=== PATIENT | female | born 1970 | race Caucasian/White ===

== ENCOUNTER 2018-05-19 15:28 | Outpatient (REF) | payer SELFPAY ==
--- NOTE | 2018-05-19 14:50 | PAPFT_PTH ---
PATIENT: Lis Davis LOC: [facility] U#:[id number] AGE/SX: 47/F ROOM: RE05/19/[address]: Teresa Dallas NP : 1970 BED: DIS: 05/19/2018 SPEC #: [id number] RECD: 05/19/18 18:14 STATUS: JAYLEN REAdy #: [id number] NHAN: 05/19/18 14:[address]: Teresa Dallas NP DEPT: [facility] Cytology RECD BY: Dee Dee Benson ENTERED: 05/19/18 18:15 SP TYPE: PAPFT CR DR: Ronda Og Tissues: 1 - CX/ENDOCX FOR PAP SMEARS Procedures: PAP THIN PREP/UVM Screening HPV DNA PROBE Comments: [id number]
== END 2018-05-19 15:48 ==
LOC: LBN 15:28
PROVIDERS: PCP Nurse Practitioner Family; Visit Provider Nurse Practitioner Women's Health
DX: Z12.4 Encounter for screening for malignant neoplasm of cervix (principal); Z11.51 Encounter for screening for human papillomavirus (HPV)
CPT/HCPCS: 88142; 87624

== ENCOUNTER 2020-08-08 03:12 | Outpatient (CLI) | payer MEDICAID, SELFPAY ==
--- NOTE | 2020-08-08 09:54 | DI.MAMMO_ITS ---
Exam(s) MAMMO SCREENING EXAM: MAMMO SCREENING CLINICAL HISTORY: SCREENING, Z12.31. TECHNIQUE: Bilateral full field digital CC and MLO mammographic images were obtained with 3D tomosyn thesis and utilizing computer aided detection (CAD). COMPARISON: None. This is a baseline mammogram on a 50-year-old patient. FINDINGS: In the right breast there is a well-defined 1.8 by 1.3 cm noncalcified nodule located posteriorly, ap proximately 10 cm in from the nipple, at approximately the 12 o'clock position. No other significant focal findings. No malignant-appearing microcalcification groups in either julia [address] There is no significant architectural distortion nor skin thickening-retraction. IMPRESSION: In the right breast there is an 18 x 13 millimeter noncalcified nodule located posteriorly at approxi mately 12 o'clock position. Spot compression view and ultrasound recommended to determine if this is solid or cystic. BI-RADS Category 0 - Assessment Incomplete: Need additional imaging evaluation Breast Density - Category B - Scattered areas of fibroglandular density Breast density Category C or D implies that the patient has dense breast tissue. Dense breast tissue can make it harder to find cancer on a mammogram. Dense breast tissue is also associated with an incr eased risk of breast cancer. This information about the result of the mammogram report was provided to the patient to raise their awareness. Use this report when you speak with the patient about their risks for breast cancer, which includes their family history. At that time, you may recommend additional screening tests (Ultrasoun d or MRI) as these tests may add significant information. A negative radiographic report should not delay biopsy if a dominant or clinically suspicious mass is present. Up to ten percent of cancers are not identified on mammography. A negative report may reinforce clinical impression. Adenosis and dense breasts may obscure an underlying neoplasm. False positive reports average 6 to 10%. Patient will receive a letter notifying them of these results.
== END 2020-08-08 03:32 ==
PROVIDERS: PCP Nurse Practitioner Family; Visit Provider Nurse Practitioner Family
DX: Z12.31 Encounter for screening mammogram for malignant neoplasm of breast (principal); R92.8 Other abnormal and inconclusive findings on diagnostic imaging of breast; N63.15 Unspecified lump in the right breast, overlapping quadrants
CPT/HCPCS: 77063; 77067

== ENCOUNTER 2020-08-28 02:14 | Outpatient (CLI) | payer MEDICAID, SELFPAY ==
--- NOTE | 2020-08-28 | DI.US_ITS ---
Exam(s) MG MAMMO SCREEN CALL BACK UNI US BREAST RT COMPLETE EXAM: MG MAMMO SCREEN CALL BACK UNI - RIGHT AND COMPLETE RIGHT BREAST ULTRSOUND CLINICAL HISTORY: F/U MAMMO, RT BREAST NODULE. TECHNIQUE: Unilateral spot mammographic images were obtained with 3D tomosynthesis and utilizing [employer] aided detection (CAD). . Breast Ultrasound was also performed. COMPARISON: Prior mammograms were reviewed. This additional imaging was performed due to findings described on the recent baseline screening mammogram of 08/08/2020. FINDINGS: Additional mammographic views performed todayreveal that this deep 12 o'clock position nodule persist s. Therefore we proceeded with ultrasound. Ultrasound performed today reveals a deep 15 x 6 millimeter wider than taller finding at the 12 o'reese ck position which has appearance of a probable cyst. Exhibits increased through transmission. At the 9 o'clock position there is a 2nd finding which is a small 4 x 2 millimeter benign microcyst. IMPRESSION: Benign findings. The nodule seen on the recent screening baseline mammogram at 12 o'clock position a ppears to be a deep 15 x 6 millimeters cyst. Ultrasound also revealed a smaller benign microcyst at the 9 o'clock position as described above. Appropriate follow-up is repeat right breast imaging in 6 months to include repeat right breast mammo gram and ultrasound. These findings and recommendations were discussed by myself with the patient to day.. BI-RADS Category 3 - 6 month - Probably Benign Finding: Recommend follow-up mammography in 6 months Breast Density - Category B - Scattered areas of fibroglandular density Breast density Category C or D implies that the patient has dense breast tissue. Dense breast tissue can make it harder to find cancer on a mammogram. Dense breast tissue is also associated with an incr eased risk of breast cancer. This information about the result of the mammogram report was provided to the patient to raise their awareness. Use this report when you speak with the patient about their risks for breast cancer, which includes their family history. At that time, you may recommend additional screening tests (Ultrasoun d or MRI) as these tests may add significant information. A negative radiographic report should not delay biopsy if a dominant or clinically suspicious mass is present. Up to ten percent of cancers are not identified on mammography. A negative report may reinforce clinical impression. Adenosis and dense breasts may obscure an underlying neoplasm. False positive reports average 6 to 10%. Patient will receive a letter notifying them of these results.
== END 2020-08-28 02:34 ==
PROVIDERS: PCP Nurse Practitioner Family; Visit Provider Nurse Practitioner Family
DX: Z12.31 Encounter for screening mammogram for malignant neoplasm of breast (principal); N60.01 Solitary cyst of right breast; N63.15 Unspecified lump in the right breast, overlapping quadrants; R92.8 Other abnormal and inconclusive findings on diagnostic imaging of breast
CPT/HCPCS: 76642; 77063; 77067

== ENCOUNTER 2020-09-05 09:55 | Outpatient (REF) | payer MEDICAID, SELFPAY ==
[2020-09-05 15:57] LABS: Hemoglobin A1C 5.7 % (<5.7)
[2020-09-05 16:17] LABS: Calculated LDL 154 mg/dL (<100); Cholesterol 254 mg/dL (<200); HDL Cholesterol 61 mg/dL (40-60); TSH (W/Ref FT4) 2.41 uIU/mL (0.36-3.74); Triglyceride 196 mg/dL (<150)
== END 2020-09-05 09:56 | disposition home or self-care (01) ==
LOC: NCHCN 09:55
PROVIDERS: PCP Nurse Practitioner Family; Visit Provider Nurse Practitioner Family
DX: F41.8 Other specified anxiety disorders (principal); N95.1 Menopausal and female climacteric states; K30 Functional dyspepsia; Z13.220 Encounter for screening for lipoid disorders; Z13.1 Encounter for screening for diabetes mellitus; E66.9 Obesity, unspecified; Z00.00 Encounter for general adult medical examination without abnormal findings
CPT/HCPCS: 80061; 83036; 84443

== ENCOUNTER 2021-03-14 00:15 | Outpatient (CLI) | payer MEDICAID, SELFPAY | END 2021-03-14 00:35 | PROVIDERS: PCP Nurse Practitioner Family; Visit Provider Nurse Practitioner Family ==

== ENCOUNTER 2021-07-15 15:00 | Outpatient (REF) | payer MEDICAID, SELFPAY ==
[2021-07-15 14:40] LABS: Abs Immature Grans 0.01 10^3/uL (0.0-0.06); Absolute Basophil Count 0.08 10^3/uL (0.0-0.2); Absolute Eosinophil Count 0.23 10^3/uL (0.0-0.7); Absolute Lymphocyte Count 1.71 10^3/uL (1.2-3.4); Absolute Monocyte Count 0.46 10^3/uL (0.1-0.8); Absolute Neutrophil Count 3.22 10^3/uL (1.2-6.7); Basophils % 1.4; HCT 39.6 % (36.0-46.0); HGB 12.8 g/dL (11.2-15.7); Immature Grans % 0.2; Lymphocytes % 29.9; MCH 28.4 pg (27.0-33.0); MCHC 32.3 % (32.0-36.0); MCV 88 fL (80-95); MPV 10.4 fL (8.0-11.0); Monocytes % 8.1; Neutrophils % 56.4; Platelet Count 298 10^3/uL (130-400); RBC 4.51 10^6/uL (3.93-5.22); RDW 12.5 % (11.7-14.6); RDW-SD 40.6 fL; WBC 5.71 10^3/uL (4.4-10.8)
[2021-07-15 15:06] LABS: Iron 89 ug/dL (50-170); Total Iron Binding Capacity 344 ug/dL (250-450); Transferrin Sat 26 % (15-50)
[2021-07-15 15:22] LABS: Anion Gap 9.3 mmol/L (3-11); BUN 15 mg/dL (7-18); CO2 28.7 mmol/L (21.0-32.0); CREATININE 0.8 mg/dL (0.55-1.02); Calcium 8.8 mg/dL (8.5-10.1); Chloride 104 mmol/L (98-107); Ferritin 37 ng/mL (8-252); Glucose 104 mg/dL (74-106); Potassium 3.9 mmol/L (3.5-5.1); Sodium 142 mmol/L (136-145); TSH (W/Ref FT4) 1.36 uIU/mL (0.36-3.74); Vitamin B12 625 pg/mL (193-986)
== END 2021-07-15 15:01 | disposition home or self-care (01) ==
LOC: NCHCN 15:00
PROVIDERS: PCP Nurse Practitioner Family; Visit Provider Nurse Practitioner Family
DX: R53.83 Other fatigue (principal); R73.03 Prediabetes; R25.2 Cramp and spasm; E78.5 Hyperlipidemia, unspecified; F41.8 Other specified anxiety disorders; N95.1 Menopausal and female climacteric states; J45.40 Moderate persistent asthma, uncomplicated
CPT/HCPCS: 80048; 82607; 82728; 83540; 83550; 83735; 84443; 85025

== ENCOUNTER → 2021-08-21 01:44 | Outpatient (CLI) | payer MEDICAID, SELFPAY ==
--- NOTE | 2021-08-21 07:43 | DI.MAMMO_ITS ---
Exam(s) MAMMO SCREENING EXAM: MAMMO SCREENING CLINICAL HISTORY: SCREENING, Z12.31 TECHNIQUE: Bilateral full field digital CC and MLO mammographic images were obtained with 3D tomosyn thesis and utilizing computer aided detection (CAD). COMPARISON: Available for comparison. FINDINGS: Masses/Architectural Distortion: There is a stable well-circumscribed nodule in the right breast. No suspicious masses or areas of architectural distortion are present. Microcalcifications: No suspicious pleomorphic-type are seen. Skin Thickening/Nipple Retraction: None. IMPRESSION: 1. No significant interval change with no specific features of malignancy noted. 2. Unless there is more urgent need, screening mammography is recommended, as per [employer] guidelines. BI-RADS Category 2 - Benign Findings Breast Density - Category B - Scattered areas of fibroglandular density Breast density category C or D implies that the patient has dense breast tissue. Dense breast tissue is very common and is not abnormal but dense breast tissue can make it harder to find cancer on a ma mmogram. Also, dense breast tissue may increase their breast cancer risk. This information about the result of the mammogram report was provided to the patient to raise their awareness. Use this report when you speak with the patient about their risks for breast cancer, which includes their family hist ory. At that time, you may recommend for more screening tests (Ultrasound or MRI) as they might be us eful based on their risk. A negative radiographic report should not delay biopsy if a dominant or clinically suspicious mass is present. Up to ten percent of cancers are not identified on mammography. A negative report may reinforce clinical impression. Adenosis and dense breasts may obscure an underlying neoplasm. False positive reports average 6 to 10%. Patient will receive a letter notifying them of these results.
== END ==
PROVIDERS: PCP Nurse Practitioner Family; Visit Provider Nurse Practitioner Family
DX: Z12.31 Encounter for screening mammogram for malignant neoplasm of breast (principal)
CPT/HCPCS: 77063; 77067

== ENCOUNTER 2022-07-30 08:59 | Day surgery (SDC) | payer MEDICAID, SELFPAY ==
--- NOTE | 2022-07-29 20:54 | W.PM.DSUDISC ---
Date of service: 07/30/22 Time of Service: 11:47 Discharge Plan Disposition Patient Disposition: Home Condition: Good Discharge Details Reason For Visit: Colonoscopy Attending Provider: Sen Espinoza Primary Care Provider: Ronda Og Home Meds and New Rx's Prescriptions: Continued albuterol sulfate 90 mcg/actuation HFA aerosol inhaler 1 puff IH Q6H PRN estradiol [Vagifem] 10 mcg tablet 10 mcg vaginal DAILY 360 Days Qty: 60 3RF Rx Instructions: Patient to use Vagifem intravaginally, daily for 2 weeks, then twice weekly. montelukast [Singulair] 10 mg tablet 10 mg PO DAILY guaifenesin [Mucinex] 600 mg tablet extended release 12hr 600 mg PO Q12H PRN Claritin Liqui-Gel 10 mg capsule 10 mg PO DAILY omeprazole 20 mg capsule,delayed release(DR/EC) 20 mg PO DAILY fluticasone propion-salmeterol [Advair Diskus] 100-50 mcg/dose blister with device 1 inh inhalation BID azelastine-fluticasone [Dymista] 137-50 mcg/spray spray,non-aerosol 1 spray intranasal BID Rx Instructions: administer into each nostril Discontinued polyethylene glycol 3350 17 gram/dose powder 238 g PO ONCE Qty: 238 0RF Rx Instructions: take per colonoscopy instructions bisacodyl [Dulcolax (bisacodyl)] 5 mg tablet,delayed release (DR/EC) 5 mg PO ONCE Qty: 4 0RF Rx Instructions: take per colonoscopy instructions Discharge Instructions Instructions: Colorectal Polyps (GEN) Additional Instructions: Fatmata, we were able to complete your colonoscopy today without any difficulty. The quality of your preparation was excellent. I did find a total of 3 polyps. I removed these all completely. We will take about a week or 2 to get the results of the pathology report, and I will be in touch at that point with my final recommendations. 1. If tolerated, consume a soft, low fiber diet for 1-2 days. 2. Do not drive, drink alcohol, operate machinery, make critical decisions, or do activities that require coordination or balance for 24 hours. 3. Because air was put into your colon during the procedure, expelling air from your rectum (passing gas or farting) is normal. 4. You may not have a bowel movement for 1-3 days because of the colonoscopy prep. This is normal. 5. Go directly to the emergency room if you notice any of the following: Develop chills (warm to touch), or if you have a thermometer and your temperature is above 101 Difficulty breathing or difficultly swallowing Persistent vomiting Severe abdominal pain, other than gas cramps Severe chest pain Black, tarry stools Any bleeding ? exceeding one tablespoon 6. Call your physician if the site where your intravenous was started becomes red, swollen, painful, and warm to touch. 7. Your physician has reviewed your pre-procedure medications. Please continue to take those medications as previously ordered. You will be given specific information/education regarding any changes to your medications before leaving. Activity:: Activity as Tolerated Diet:: As Tolerated Discharge Orders Discharge Orders: Discharge Order (Routine); Ordered 07/29/22 Ordered By: Sen Espinoza DS: Diagnosis Discharge Diagnosis (1) Screening for colon cancer: Status: Acute Asessment and Plan: Follow-up on polypectomy report
--- NOTE | 2022-07-29 20:56 | W.COLOREPORT ---
Date of service: 07/30/22 Time of Service: 11:46 Colonoscopy Report Date of procedure: 07/30/22 Pre-op diagnosis general: Screening colonoscopy Post-op diagnosis procedure note: other (Colorectal polyps) Procedure: Colonoscopy with polypectomy Surgeon: Sen Espinoza Anesthesia Type: General:No Airway Estimated blood loss (mL): 15 Pathology: other (Rectal polyp, polyp at 50 cm, polyp at 60 cm) Complications: None Disposition: same day Indications: Lis is 52 years old and she needs a screening colonoscopy Prep: Miralax/Dulcolax Procedure Start Time: 10:57 Procedure End Time: 11:27 Retraction Time: 18 Findings: 0.75 cm rectal polyp, sessile, 0.25 cm sessile polyp at 50 cm, 0.5 cm sessile polyp at 60 cm Procedure Description: After the induction of monitored anesthetic care, and with the patient in left lateral decubitus position, I began by performing an external anorectal exam.? Perineum and skin were normal, as was the anal verge.? There was no evidence of external hemorrhoids.? Next, I performed a digital rectal exam.? I did not appreciate any abnormal findings.? Next, I advanced a colonoscope into the rectal vault.? I performed retroflexion.? This appeared normal.? Within the midportion of the rectum was a 0.75 cm pedunculated rectal polyp. I removed this with snare polypectomy. There was minimal bleeding. Using insufflation, I then advanced the colonoscope beyond the rectal folds and into the sigmoid colon before advancing towards the cecum.? The quality of the prep was excellent.? The scope was noted to be in the cecum by identification of the ileocecal valve and appendiceal orifice.? I then began withdrawing the colonoscope using repeated irrigation as necessary for full evaluation of the colonic mucosa. Around 60 cm from the anal verge I identified a 0.5 cm polyp. ?It appeared sessile in character. ?I was able to remove this with a cold forcep polypectomy. ?I examined the site, and there was minimal bleeding. ?Once this was completed, I continued to withdraw the scope and examine the remainder of the colonic mucosa.? Similarly, around 50 cm from the anal verge was a 0.25 cm sessile polyp. This was also removed with cold forceps. There was minimal bleeding here as well. Once the scope was withdrawn to the level of the rectum, great care was taken to examine portions of the rectal folds.? Finally, the scope was withdrawn and the patient was brought to the same-day surgery recovery unit as the anesthetic wore off. ?The findings and instructions were shared with the patient prior to discharge.
[2022-07-30 09:21] VITALS: BP 105/93; PULSE 80; RESP 17; TEMP 36.6; O2SAT 97
[2022-07-30] MEDS: Lactated Ringers 1,000 ML 80 ML IV (09:33)
--- NOTE | 2022-07-30 10:14 | W.ANESPRE ---
General Info Date of Service Date Performed: 07/30/22 Height: 5 ft 5 in Weight: 94.3 kg Body Mass Index (BMI): 34.6 Surgical Procedure: Operation Date: 07/30/22 10:20 Proposed Procedure Side Surgeon edgardo Espinoza MD Meds Allergies and Home Medications Allergies Allergy/AdvReac Type Severity Reaction Status Date / Time No Known Allergies Allergy Verified 07/30/22 09:18 Home Medication Medication Instructions Recorded albuterol sulfate 90 mcg/actuation 1 puff inhalation Q6H PRN 05/19/18 aerosol inhaler fluticasone 100 mcg-salmeterol 50 1 inh inhalation BID 07/23/20 mcg/dose blistr powdr for inhalation (Advair Diskus) guaifenesin 600 mg tablet, 600 mg PO Q12H PRN 07/23/20 extended release 12 hr (Mucinex) loratadine 10 mg capsule (Claritin 10 mg PO DAILY 07/23/20 Liqui-Gel) montelukast 10 mg tablet 10 mg PO DAILY 07/23/20 (Singulair) omeprazole 20 mg capsule,delayed 20 mg PO DAILY 07/23/20 release azelastine-fluticasone 137 mcg-50 1 spray intranasal BID 12/22/21 mcg/spray nasal spray (Dymista) estradiol 10 mcg vaginal tablet 10 mcg vaginal DAILY 12 months #60 05/11/22 (Vagifem) tabs Current Visit Medications: Current Medications Generic Name Dose Route Start Last Admin Trade Name Freq PRN Reason Stop Dose Admin Hyoscyamine Sulfate 0.125 mg 07/29/22 20:57 Hyoscyamine 0.125 Mg Sl/Oral/Chew SL 08/28/22 20:56 DIRECTED PRN Ringer's Solution 1,000 mls @ 80 mls/hr 07/30/22 06:00 07/30/22 09:33 IV 08/07/22 23:59 80 mls/hr INFUSION YESSICA Administration IV Miscellaneous Supplies 1 each 07/30/22 06:00 Iv Access IV 08/07/22 23:59 DIRECTED YESSICA Ondansetron HCl 4 mg 07/29/22 20:57 Ondansetron 4 Mg/2 Ml Vial IVP 08/28/22 20:56 Q4H PRN PRN Nausea / Vomiting Sodium Chloride 0 ml 07/30/22 06:00 Normal Saline Flush 10 Ml Syr IV 08/07/22 23:59 PRN PRN Sodium Chloride 0 ml 07/30/22 06:00 Normal Saline 10 Ml Vial IJ 08/07/22 23:59 DIRECTED PRN Sterile Water 0 ml 07/30/22 06:00 Water,Injection,Sterile 10 Ml Vial IJ 08/07/22 23:59 DIRECTED PRN PFSH Active Problems Active Problems: Problem Status Onset Code Menopausal symptoms N95.1 Paresthesia R20.2 Sleep apnea G47.30 Prediabetes R73.03 MRSA (methicillin resistant Staphylococcus aureus) A49.02 Foot pain M79.673 Screening for colon cancer Z12.11 Dyspepsia R10.13 Dizziness R42 Low back pain M54.5 Paresthesia of both hands R20.2 Anxiety and depression F41.9, F32.9 Perimenopausal N95.1 Asthma J45.909 Medical History Medical History Vasomotor symptoms due to menopause Tobacco Smoking/Tobacco Use Status: Never Alcohol Alcohol Intake: never Substance Use Substance use: Never Substance use type: does not use Prental History History 0 Para Hx # Term Pregnancies Multiple births Hx # Pregnancies Ectopic pregnancies AB induced Hx Number of Living Children AB spontaneous Vital Signs and Lab Results Vital Signs Most Recent Vital Signs in EMR: Most Recent Vital Signs Temp Pulse Resp BP Pulse Ox 36.6 C 80 17 105/93 H 97 07/30/22 09:21 07/30/22 09:21 07/30/22 09:21 07/30/22 09:21 07/30/22 09:21 Lab Results Blood Type / Crossmatch: No Data to Display Complete Blood Count: No Data to Display Complete Metabolic Panel: No Data to Display Liver Function Panel: No Data to Display Coagulation Panel: No Data to Display Cardiac Panel: No Data to Display Arterial Blood Gas: No Data to Display Venous Blood Gas: No Data to Display Pancreas Panel: No Data to Display Thyroid Panel: No Data to Display Infectious Disease: No Data to Display Blood Cultures: No Data to Display Toxicology Panel: No Data to Display Panel: No Data to Display Anesthesia Assessment and Plan Anesthesia History Personal History: No History of Anesthesia Complications Family History: No Family History of Anesthesia Complications Exercise Tolerance Exercise Tolerance: Metabolic Equivalents>4 Pertinent Negatives Pertinent Negatives: No Symptoms of GERD, No Major Cardiovascular Symptoms or Complaints and No Major Pulmonary Symptoms or Complaints Cardiac & Pulmonary Exam Cardiac Exam: Normal S1/S2 Heart Sounds Pulmonary Exam: Clear Bilateral Breath Sounds Implantable Cardiac Device Does patient have a Pacemaker or an ICD?: No Airway Exam Known Difficult Airway: No Mallampati Class: 1 Mouth Opening: Normal (> 3cm) Thyromental Distance: Greater than 3 cm Neck Range of Motion: Full ROM Neck Circumference: Normal Teeth Condition: Normal Dentition (A few missing teeth, nothing loose) ASA Classification ASA Score: ASA 2 Emergency Case?: No NPO Status NPO Status: NPO Clears >2 hours, Solids >8 hours Status Status: Not Relevant due to Medical History Anesthesia Plan Resuscitation Status: Full Code Anesthesia Technique: General Anesthesia Airway Planned: Natural Airway Monitors Used: Standard Monitors
[2022-07-30 10:17] VITALS: BMI 34.6
--- NOTE | 2022-07-30 11:00 | BOWEL_PTH ---
PATIENT: Lis Davis LOC: [facility] U#:[id number] AGE/SX: 52/F ROOM: RE07/30/[address]: Sen Espinoza MD : 1970 BED: DIS: 07/30/2022 SPEC #: [id number] RECD: 07/30/22 12:54 STATUS: JAYLEN RE #: [id number] NHAN: 07/30/22 11:[address]: Sen Espinoza DEPT: Surgical Specimen RECD BY: Dee Dee Benson ENTERED: 07/30/22 12:55 SP TYPE: Bowel OTHR DR: Ronda Og Tissues: 1 - BIOPSY BOWEL 2 - BIOPSY BOWEL 3 - BIOPSY BOWEL Procedures: GROSS AND MICRO LEVEL 4 Comments: [id number]
[2022-07-30 11:33] VITALS: BP 105/68; PULSE 63; RESP 16; TEMP 36.1; O2SAT 98
[2022-07-30 12:08] VITALS: BP 119/73; PULSE 54; RESP 16; TEMP 36.1; O2SAT 100
--- NOTE | 2022-07-30 12:28 | W.ANESPOSTOP ---
Postoperative Evaluation Date, Time and Location Date Performed: 07/30/22 Time Performed: 12:29 Patient Location: Day Surgery Unit Vital Signs Most Recent Imported Vital Signs: Most Recent Vital Signs Temp Pulse Resp BP Pulse Ox 36.1 C L 54 L 16 119/73 100 07/30/22 12:08 07/30/22 12:08 07/30/22 12:08 07/30/22 12:08 07/30/22 12:08 Pain Score Most Recent Pain Score: Most Recent Pain Score Pain Level 0 07/30/22 12:08 Assessment Mental Status: Awake (Alert & Oriented to Patient Baseline) Airway and Respiratory Function: Patent airway with normal (patient baseline) respiratory exam Cardiovascular Function: Hemodynamically Stable Hydration Status: Adequately Hydrated Nausea & Vomiting: No Nausea or Vomiting Pain: Pt. Denies Any Pain Peripheral Nerve Block: Patient did not receive a nerve block
== END 2022-07-30 12:25 | disposition home or self-care (01) ==
PROVIDERS: PCP Nurse Practitioner Family; Visit Provider Surgery
PROC: 0DJD8ZZ Inspection of Lower Intestinal Tract, Via Natural or Artificial Opening Endoscopic (ICD-10-PCS; CPT 45378; principal; 2022-07-30 10:15)
DX: Z12.11 Encounter for screening for malignant neoplasm of colon (principal); D12.8 Benign neoplasm of rectum; D12.5 Benign neoplasm of sigmoid colon; D12.4 Benign neoplasm of descending colon
CPT/HCPCS: 45385; 45380; 88305; J2405

== ENCOUNTER 2022-09-09 13:39 | Outpatient (REF) | payer MEDICAID, SELFPAY ==
[2022-09-09 15:04] LABS: Abs Immature Grans 0.01 10^3/uL (0.0-0.06); Absolute Eosinophil Count 0.11 10^3/uL (0.0-0.7); Absolute Lymphocyte Count 2.18 10^3/uL (1.2-3.4); Absolute Monocyte Count 0.46 10^3/uL (0.1-0.8); Absolute Neutrophil Count 4.67 10^3/uL (1.2-6.7); Basophils % 1.3; Eosinophils % 1.5; HGB 13.2 g/dL (11.2-15.7); Immature Grans % 0.1; MCH 28.1 pg (27.0-33.0); MCV 85 fL (80-95); Monocytes % 6.1; Platelet Count 452 10^3/uL (130-400); RBC 4.69 10^6/uL (3.93-5.22); RDW 12.1 % (11.7-14.6); RDW-SD 37.7 fL; WBC 7.53 10^3/uL (4.4-10.8)
[2022-09-09 15:08] LABS: ESR 22 mm/hr (0-30)
[2022-09-09 15:31] LABS: ALT 19 U/L (14-59); AST 30 U/L (15-37); Albumin 3.5 g/dL (3.4-5.0); Alkaline Phosphatase 83 U/L (46-116); Anion Gap 6.9 mmol/L (3-11); BUN 6 mg/dL (7-18); Bilirubin, Total 0.6 mg/dL (0.2-1.0); CO2 30.1 mmol/L (21.0-32.0); CREATININE 0.9 mg/dL (0.55-1.02); Calcium 8.8 mg/dL (8.5-10.1); Chloride 106 mmol/L (98-107); Estimated GFR 76.92 (mL/min/1.73m2); Glucose 104 mg/dL (74-106); Potassium 3.8 mmol/L (3.5-5.1); Sodium 143 mmol/L (136-145); Total Protein 7.3 g/dL (6.4-8.2)
== END 2022-09-09 13:40 | disposition home or self-care (01) ==
LOC: NCHCN 13:39
PROVIDERS: PCP Nurse Practitioner Family; Visit Provider Family Medicine
DX: R10.2 Pelvic and perineal pain (principal)
CPT/HCPCS: 80053; 85652; 85025

== ENCOUNTER → 2022-09-18 01:01 | Outpatient (CLI) | payer MEDICAID, SELFPAY ==
--- NOTE | 2022-09-18 | DI.US_ITS ---
Exam(s) US PELVIS TRANSVAGINAL EXAM: US PELVIS TRANSVAGINAL CLINICAL HISTORY: PELVIC PAIN, R10.2 TECHNIQUE: Transabdominal and transvaginal imaging was performed using standard protocol. COMPARISON: CT CT ABDOMEN PELVIS W from 09/18/2022 FINDINGS: UTERUS: Retroflexed. 6.1 x 3.6 x 4.3 cm. Endometrium: Endometrium appears thickened and heterogeneous and shows vascularity.. 1.4 cm Myometrium: Unremarkable. Cervix: Unremarkable. OVARIES: Right: Cyst or mass: Large mixed cystic and solid mass measuring 15 x 9 x 11 cm. Findings highly denisha picious for ovarian carcinoma. Left: Cyst or mass: 2.4 centimeter hypoechoic nodule left ovary. DOPPLER: Color: Symmetric and uniform flow to both ovaries. No hyperemia. CUL-DE-SAC: Free fluid: None. IMPRESSION: 1. Thickened, vascular heterogeneous endometrium. Biopsy recommended.. 2. 15 centimeter mixed cystic and solid mass highly suspicious for ovarian carcinoma. Indeterminate 2.4 centimeter hypoechoic nodule the left ovary. Unexpected findings DATA REPOSITORY:
--- NOTE | 2022-09-18 09:15 | DI.CT_ITS ---
Exam(s) CT ABDOMEN PELVIS W EXAM: CT ABDOMEN PELVIS W CLINICAL HISTORY: abdominal pain, R10.9. TECHNIQUE: Imaging Protocol: Axial computed tomography images with coronal and sagittal reformatted images were created and reviewed CONTRAST MATERIAL: Intravenous: Omnipaque 350 Contrast volume:100 ml Oral: yes / COMPARISON: US US PELVIS TRANSVAGINAL from 09/18/2022 FINDINGS: ABDOMEN: Lung Bases: Normal where visualized. Tiny hiatal hernia. Liver: Normal density. No measurable mass. Gallbladder and biliary tract: No radiodense calculus or dilation. Pancreas: Normal density, no abnormal calcifications or inflammatory process. Spleen: Normal. Kidneys: Normal size, contour and axis. No radiodense stones . No suspicious masses seen. Mild dila tation of the right renal collecting system appear secondary to the large right ovarian mass. Adrenal glands: No masses seen. Abdominal Aorta: Abdominal portion non-dilated. Soft tissues: Unremarkable. PELVIS: Bladder: No gross wall thickening. No calculi.No focal mass. Bowel: Colon appears normal. No obstruction. No bowel wall thickening. Appendix normal. Peritoneal cavity: No ascites, collection or mesenteric inflammatory response. No omental caking. Bones: Degenerative disc changes at L4-5. Reproductive organs: 14 x 9 by 11.5 centimeter mixed cystic solid right ovarian mass. Enhancing mahsa d components. An additional 3 centimeter low-attenuation lesion is seen on the left ovary. The uter us is retroverted. The endometrium appears thickened and shows some enhancing nodules. Lymph nodes: Unremarkable. Impression: 14 centimeter mixed solid cysts and cystic right ovarian mass, suspicious for ovarian carcinoma. No evidence of adenopathy or metastatic disease. Abnormal thickening and nodularity of the endometrial stripe. RADIATION DOSE DELIVERED: 980.81mGy.cm Total DLP DATA REPOSITORY: All CT scans at this facility are submitted to the National Radiology Data Registry (NRDR) Dose Index Registry (DIR) with the [employer] (ACR). RADIATION OPTIMIZATION: All CT scans at this facility use at least one of these dose optimization te chniques: automated exposure control; mA and/or kV adjustment per patient size (includes targeted exa ms where dose is matched to clinical indication); or iterative reconstruction.
[2022-09-18] MEDS: Omnipaque 350 MG/ML 50 ML BTL PO (09:25)
[2022-09-18] MEDS: Breeza Beverage 473 ML BTL 900 ML PO (09:26)
[2022-09-18] MEDS: Omnipaque 350 MG/ML 500 ML BTL-Imaging package IJ (11:50)
[2022-09-18] MEDS: Normal Saline - Diluent 50 ML VIAL IJ (11:50)
== END ==
PROVIDERS: PCP Nurse Practitioner Family; Visit Provider Family Medicine
DX: R10.9 Unspecified abdominal pain (principal); N83.201 Unspecified ovarian cyst, right side; N85.8 Other specified noninflammatory disorders of uterus
CPT/HCPCS: 74177; 76830; 76856; Q9967

== ENCOUNTER 2022-09-18 14:04 | Outpatient (REF) | payer MEDICAID, SELFPAY ==
--- NOTE | 2022-09-18 13:30 | ENDOMET_PTH ---
PATIENT: Lis Davis LOC: [facility] U#:[id number] AGE/SX: 52/F ROOM: RE09/18/[address]: Laura Hawk MD : 1970 BED: DIS: 09/18/2022 SPEC #: [id number] RECD: 09/18/22 17:41 STATUS: JAYLEN REQ #: [id number] NHAN: 09/18/22 13:[address]: Laura Hawk DEPT: Surgical Specimen RECD BY: Dee Dee Benson ENTERED: 09/18/22 17:42 SP TYPE: Endomet OTHR DR: Ronda Og Tissues: 1 - ENDOMETRIUM BX/MINE Procedures: GROSS AND MICRO LEVEL 4 Comments: [id number]
== END 2022-09-18 14:05 | disposition home or self-care (01) ==
LOC: LBN 14:04
PROVIDERS: PCP Nurse Practitioner Family; Visit Provider Obstetrics & Gynecology
DX: R93.89 Abnormal findings on diagnostic imaging of other specified body structures (principal); N85.8 Other specified noninflammatory disorders of uterus; N83.8 Other noninflammatory disorders of ovary, fallopian tube and broad ligament
CPT/HCPCS: 88305

== ENCOUNTER 2022-09-18 16:54 | Outpatient (CLI) | payer MEDICAID, SELFPAY ==
[2022-09-18 15:43] LABS: Abs Immature Grans 0.02 10^3/uL (0.0-0.06); Absolute Eosinophil Count 0.13 10^3/uL (0.0-0.7); Absolute Lymphocyte Count 2.61 10^3/uL (1.2-3.4); Absolute Monocyte Count 0.55 10^3/uL (0.1-0.8); Absolute Neutrophil Count 6.36 10^3/uL (1.2-6.7); Eosinophils % 1.3; HCT 39.2 % (36.0-46.0); Immature Grans % 0.2; Lymphocytes % 26.7; MCH 27.9 pg (27.0-33.0); MCHC 33.2 % (32.0-36.0); MCV 84 fL (80-95); MPV 9.3 fL (8.0-11.0); Monocytes % 5.6; Neutrophils % 65.2; Platelet Count 413 10^3/uL (130-400); RBC 4.66 10^6/uL (3.93-5.22); RDW 12.1 % (11.7-14.6); RDW-SD 36.9 fL; WBC 9.77 10^3/uL (4.4-10.8)
[2022-09-18 16:14] LABS: PTT Activated 29.9 sec (21.5-31.9)
[2022-09-18 16:28] LABS: D-Dimer 474 ng/mlFEU (<500)
[2022-09-18 16:47] LABS: Ferritin 60 ng/mL (8-252)
[2022-09-18 23:25] LABS: CEA 1.5 ng/mL (See Note)
[2022-09-21 10:53] LABS: CA 125 47 U/mL (<30); CA 19-9 8 U/mL (<35)
[2022-09-23 16:24] LABS: JAK2 Result see interpretation
== END 2022-09-18 16:55 | disposition home or self-care (01) ==
LOC: LBO 16:54
PROVIDERS: PCP Nurse Practitioner Family; Visit Provider Obstetrics & Gynecology
DX: N83.8 Other noninflammatory disorders of ovary, fallopian tube and broad ligament (principal); R79.89 Other specified abnormal findings of blood chemistry; D47.3 Essential (hemorrhagic) thrombocythemia
CPT/HCPCS: 36415; 86304; 81270; 82378; 82728; 85025; 85379; 85610; 85730; 86301

== ENCOUNTER 2022-09-30 18:37 | Outpatient (REF) | payer MEDICAID, SELFPAY ==
[2022-09-30 17:07] LABS: Abs Immature Grans 0.02 10^3/uL (0.0-0.06); Absolute Basophil Count 0.08 10^3/uL (0.0-0.2); Absolute Eosinophil Count 0.11 10^3/uL (0.0-0.7); Absolute Lymphocyte Count 2.11 10^3/uL (1.2-3.4); Absolute Monocyte Count 0.52 10^3/uL (0.1-0.8); Absolute Neutrophil Count 6.54 10^3/uL (1.2-6.7); Basophils % 0.9; Eosinophils % 1.2; HCT 38.9 % (36.0-46.0); HGB 12.7 g/dL (11.2-15.7); Immature Grans % 0.2; Lymphocytes % 22.5; MCHC 32.6 % (32.0-36.0); MCV 86 fL (80-95); MPV 10.1 fL (8.0-11.0); Monocytes % 5.5; Neutrophils % 69.7; Platelet Count 465 10^3/uL (130-400); RBC 4.54 10^6/uL (3.93-5.22); RDW 12.1 % (11.7-14.6); WBC 9.38 10^3/uL (4.4-10.8)
[2022-09-30 17:58] LABS: ALT 15 U/L (14-59); AST 24 U/L (15-37); Albumin 3.2 g/dL (3.4-5.0); Alkaline Phosphatase 101 U/L (46-116); Anion Gap 6.2 mmol/L (3-11); BUN 6 mg/dL (7-18); Bilirubin, Total 0.6 mg/dL (0.2-1.0); CO2 29.8 mmol/L (21.0-32.0); CREATININE 0.8 mg/dL (0.55-1.02); Calcium 8.6 mg/dL (8.5-10.1); Chloride 103 mmol/L (98-107); Glucose 85 mg/dL (74-106); Potassium 3.7 mmol/L (3.5-5.1); Sodium 139 mmol/L (136-145); Total Protein 6.3 g/dL (6.4-8.2)
== END 2022-09-30 18:38 | disposition home or self-care (01) ==
LOC: NCHCN 18:37
PROVIDERS: PCP Nurse Practitioner Family; Visit Provider Nurse Practitioner Family
DX: N83.9 Noninflammatory disorder of ovary, fallopian tube and broad ligament, unspecified (principal); R10.2 Pelvic and perineal pain
CPT/HCPCS: 80053; 85025

== ENCOUNTER → 2022-10-01 02:09 | Outpatient (CLI) | payer MEDICAID, SELFPAY ==
--- NOTE | 2022-10-01 | DI.CT_ITS ---
Exam(s) CT ABDOMEN PELVIS W EXAM: CT ABDOMEN PELVIS W CLINICAL HISTORY: WORSENING PELVIC PAIN,R10.2,OVARIAN MASS,N83.9,? CHANGE. TECHNIQUE: Imaging Protocol: Axial computed tomography images with coronal and sagittal reformatted images were created and reviewed CONTRAST MATERIAL: Intravenous: Omnipaque-350 100cc Oral: Yes. Oral contrast was also administered for bowel opacification. COMPARISON: CT CT ABDOMEN PELVIS W from 09/18/2022 FINDINGS: VISUALIZED LUNG BASES: No nodules nor pleural effusions evident. ABDOMEN: There is now small amount of ascites evident. Both in the dependent aspect of the pelvis right peric olic gutter perihepatic. LIVER: Few tiny benign cysts in the liver as well as fatty parenchymal change in the medial right hep atic lobe adjacent to the inter lobar fissure. No dilated intrahepatic ducts. GALLBLADDER/BILIARY: No obvious gallbladder pathology. CBD is not dilated. PANCREAS: No evidence of pancreatic mass nor dilatation of the pancreatic duct. SPLEEN: Spleen is not enlarged. No obvious intrasplenic lesions. Splenic and portal veins are paten t. ADRENALS: There are no significant adrenal masses. KIDNEYS:No cysts nor solid lesions. There is a tiny 1 mm calculus lower pole calyx of the right kidn ey. There is mild bilateral hydroureter. This is most probably related to the huge mass in the pelv is. There are no calculi in the nondistended distal ureters nor within urinary bladder.. ABDOMINAL AORTA: Abdominal aorta is not enlarged. LYMPH NODES:There is no retroperitoneal nor paraaortic adenopathy. ABDOMINAL WALL: No evidence of significant anterior abdominal wall nor inguinal hernia. GI: Sigmoid is again noted be compressed by the large pelvic mass but there is no true bowel obstruct ion, free air, nor abscess PELVIS: GI: No evidence of appendicitis.A small amount of fluid adjacent to the appendix in the right pericol ic gutter but this most probably related to the ovarian finding as opposed to appendicitis.No signifi cant sigmoid diverticular disease. LYMPH NODES: There is no intrapelvic nor inguinal adenopathy. REPRODUCTIVE: Previously described large malignant-appearing mass in the pelvis above the uterus and urinary bladder is again noted, highly suspicious for right ovarian malignancy and measuring 15.5 cm cephalocaudal by 10.3 cm AP by 0.5 cm wide. The fact that there is some ascitic fluid now associated with this mass may imply an element of developing torsion versus developing malignant ascites or a c ombination thereof. The previously described 3 cm low-attenuation lesion in the left ovary is also a gain noted. The endometrium is again noted be abnormal with thickening and nodularity. URINARY BLADDER: No calculi nor obvious masses evident OSSEOUS: No fractures and no significant osseous lesions. The disc space narrowing at L4-5 level noted. No lytic nor sick osseous lesions evident. IMPRESSION: 1. Compared to the recent CT scan of 09/18/2022 there is again noted the large malignant-appearing ri ght ovarian mass and smaller left ovarian mass. However, there is now mild amount of ascites which e ither implies developing torsion, malignant ascites, or a combination both. 2. The endometrial lining is also of concern is thickened and exhibits nodularity. Either related po lyps or possible endometrial malignancy. 3. Mild bilateral hydroureter. This is due to the mass effect of the large right ovarian mass upon t he ureters. RADIATION DOSE DELIVERED: 1,823.67mGy.cm Total DLP DATA REPOSITORY: All CT scans at this facility are submitted to the National Radiology Data Registry (NRDR) Dose Index Registry (DIR) with the [employer] (ACR). RADIATION OPTIMIZATION: All CT scans at this facility use at least one of these dose optimization te chniques: automated exposure control; mA and/or kV adjustment per patient size (includes targeted exa ms where dose is matched to clinical indication); or iterative reconstruction.
[2022-10-01] MEDS: Normal Saline Flush 10 ML SYR IVP (15:02)
[2022-10-01] MEDS: Normal Saline - Diluent 50 ML VIAL IJ (15:02)
[2022-10-01] MEDS: Omnipaque 350 MG/ML 500 ML BTL-Imaging package IJ (15:03)
[2022-10-01] MEDS: Barium Sulfate 2% W/V-Berry Smoothie 450 ML BTL PO (15:03)
== END ==
PROVIDERS: PCP Nurse Practitioner Family; Visit Provider Nurse Practitioner Family
DX: C56.1 Malignant neoplasm of right ovary (principal); N85.00 Endometrial hyperplasia, unspecified; N13.4 Hydroureter; M51.36 Other intervertebral disc degeneration, lumbar region
CPT/HCPCS: 74177

== ENCOUNTER 2022-10-03 12:29 | Emergency (ER) | payer MEDICAID, SELFPAY ==
[2022-10-03] VITALS (16 sets, daily range): BP systolic 115–120; BP diastolic 70–80; PULSE 65–80; RESP 16–18; TEMP 36.7; O2SAT 92–99
--- NOTE | 2022-10-03 12:59 | ED.GENADUL_ITS ---
Discharge Plan Disposition Patient Disposition: Home Discharge Details Clinical Impression: Abdominal pain, Mass of right ovary Primary Care Provider: Ronda Og ED Provider: Demario Carvalho Home Meds and New Rx's Prescriptions: Continued albuterol sulfate 90 mcg/actuation HFA aerosol inhaler 1 puff IH Q6H PRN montelukast [Singulair] 10 mg tablet 10 mg PO DAILY Claritin Liqui-Gel 10 mg capsule 10 mg PO DAILY omeprazole 20 mg capsule,delayed release(DR/EC) 20 mg PO DAILY fluticasone propion-salmeterol [Advair Diskus] 100-50 mcg/dose blister with device 1 inh inhalation BID azelastine-fluticasone [Dymista] 137-50 mcg/spray spray,non-aerosol 1 spray intranasal BID Rx Instructions: administer into each nostril guaifenesin [Mucinex] 600 mg tablet extended release 12hr 1,200 mg PO Q12H buspirone 10 mg tablet 10 mg PO QHS Discontinued estradiol [Vagifem] 10 mcg tablet 10 mcg vaginal DAILY 360 Days Qty: 60 3RF Patient Comments: stopped Rx Instructions: Patient to use Vagifem intravaginally, daily for 2 weeks, then twice weekly. Discharge Instructions Instructions: Abdominal Pain (ED) Additional Instructions: Please use the provided limited narcotic as needed for severe pain and discomfort. You may otherwise continue to use jlsp-[id number]-iymcwhc pain medication along with your normally prescribed meds. If you have any new or significant w orsening of symptoms feel free to return the emergency department for reassessment otherwise it is very important to keep your specialty appointment for Wednesday for further definitive care of your abdominal mass. Referrals: [facility] [Outside] (Keep your appointment as previously arranged for Wednesday) Discharge Data Discharge Date/Time-TO BE ENTERED AT DEPARTURE: 10/03/22 15:34 Medical Decision Making Patient presenting to the emergency department for chief complaint of continued abdominal pain that is uncontrollable. Patient was recently diagnosed with ovarian cancer with a 15 cm mass near the right ovary. Patient is [place] [facility] She has been taking iram-msi-licdqhx ibuprofen but over the last couple days pain has not been controllable with jfyg-woq-bxalahy meds. She states her last dose of medication was last night. Patient denies any change in her pain pattern, or change in other associated symptoms that have been going on for months. Review of medical records show that patient has had significant amount of blood work, CT imaging, and ultrasounds prior to referral to specialist. Physical exam shows diffuse abdominal tenderness with palpable mass noted. Exam is otherwise nondiagnostic. We will plan on checking patient's labs and aggressively treating her discomfort. I do not feel that further advanced imaging is needed given that diagnosis has been made and patient is waiting specialty appointment with no significant change in pain except for it being not well controlled at this time. Reviewed patient's labs and CBC is overall unremarkable, of note though is that patient's platelet counts have started to decrease and now are only 403 where they were significantly elevated prior. CMP shows sodium of 133, low anion gap, slightly elevated AST at 43 and low albumin. Labs are otherwise unremarkable. Patient reassessed and is now sleeping with well-controlled pain. Will discharge patient with limited amount of oxycodone to use at home for severe pain otherwise to follow-up with specialty consult as already arranged on Wednesday. After discussion of diagnosis and plan of care patient has no further needs, questions, or concerns and states clear understanding to return to the emergency department for any worsening symptoms. This documentation was generated using [employer] dictation system, please disregard any oddities of phrase or misspellings. Medical Records Medical records reviewed: Yes I reviewed the patient's medical records. Lab Data Lab results reviewed: Yes I reviewed the patient's lab results. HPI General Mode of arrival: ambulatory . Date/Time Provider Initiated Documentation: 10/03/22 12:30 . Limitations to Documentation: no limitations . Information obtained by: patient and RN notes reviewed . History of Present Illness 52 year old F presents to the emergency department with the chief complaint of Abdominal pain, described as moderate and severe, with intensit y rated at 9. Quality is described as aching and sharp, and is localized to the abdomen. Patient started experiencing this month(s) (1) and it has been constant. No relieving factors improve symptom(s), No exacerbating factors reported . Patient did receive the following treatments prior to arrival, none Related Data Home Medications Medication Instructions Recorded Confirmed albuterol sulfate 90 mcg/actuation 1 puff inhalation Q6H PRN 05/19/18 09/18/22 aerosol inhaler fluticasone 100 mcg-salmeterol 50 1 inh inhalation BID 07/23/20 10/03/22 mcg/dose blistr powdr for inhalation (Advair Diskus) loratadine 10 mg capsule (Claritin 10 mg PO DAILY 07/23/20 10/03/22 Liqui-Gel) montelukast 10 mg tablet 10 mg PO DAILY 07/23/20 10/03/22 (Singulair) omeprazole 20 mg capsule,delayed 20 mg PO DAILY 07/23/20 10/03/22 release azelastine-fluticasone 137 mcg-50 1 spray intranasal BID 12/22/21 10/03/22 mcg/spray nasal spray (Dymista) guaifenesin 600 mg tablet, 1,200 mg PO Q12H 09/18/22 10/03/22 extended release 12 hr (Mucinex) buspirone 10 mg tablet 10 mg PO QHS 09/23/22 10/03/22 Allergies Allergy/AdvReac Type Severity Reaction Status Date / Time No Known Allergies Allergy Verified 10/03/22 12:37 General Stated Complaint: [employer]: 3 Review of Systems Constitutional Constitutional: Reports chills, Denies fever(s), Denies headache(s), Reports malaise and Reports poor appetite ENT Ears, Nose, Mouth, and Throat: Denies headache(s) Cardiovascular Cardiovascular: Denies chest pain and Denies dyspnea Respiratory Respiratory: Denies cough and Denies dyspnea Gastrointestinal Gastrointestinal: Reports as per HPI, Reports abdominal pain, Denies change in bowel habits, Denies constipation and Reports other (Painful bowel movements) Genitourinary Genitourinary: Reports as per HPI, Reports dysuria and Reports pelvic pain Integumentary/Breasts Skin/Breast: Denies rash Neurologic Neurologic: Denies headache(s) PFSH All Active Problems (Updated 10/03/22 @ 15:15 by Demario Carvalho NP) Asthma (Chronic) Anxiety and depression (Chronic) Paresthesia of both hands (Acute) Low back pain (Acute) Dizziness (Acute) Dyspepsia (Acute) Foot pain (Acute) Tubular adenoma (Acute ~07/2022) Abdominal pain (Acute) Mass of right ovary (Acute) Elevated platelet count (Acute) Thickened endometrium (Acute) Cervical polyp (Acute) Medical History MRSA (methicillin resistant Staphylococcus aureus) Prediabetes Sleep apnea Vasomotor symptoms due to menopause Surgical History History of colonoscopy (~07/2022) Family History Mother , 68 y.o. Pancreatic cancer Social History Smoking/Tobacco Use Status: Never Smoking risk assessment performed?: Yes Alcohol Intake: never Drug use: Daily Substance use type: marijuana Housing: house Sexually active: Yes Do you think of yourself as: lesbian/pride/homosexual Current gender identity: female Do you feel safe at home: Yes Do you feel safe in your relationship?: Yes Female Reproductive History Menstrual control method: none (same sex relationship) History History 0 Para Hx # Term Pregnancies Multiple births Hx # Pregnancies Ectopic pregnancies AB induced Hx Number of Living Children AB spontaneous Exam Const General: cooperative Orientation: alert, awake and oriented x3 Resp Effort & Inspection: normal respiratory effort and able to speak in complete sentences Auscultation: clear to auscultation bilaterally Cardio Rate: regular rate Rhythm: regular rhythm Heart Sounds: S1 normal and S2 normal GI Palpation: soft, no hepatosplenomegaly, not firm, guarding, mass, no pulsatile masses, no splenomegaly and tender (Diffuse with more central to right lower quadrant) Auscultation: normal bowel sounds Neuro General: patient alert, patient awake, patient oriented x3, gait normal and moves all extremities Course Vital Signs Vital signs: Vital Signs Temperature 36.7 C 10/03/22 12:31 Pulse 80 10/03/22 12:31 Respiratory Rate 16 10/03/22 12:31 Blood Pressure 120/80 10/03/22 12:31 Pulse Oximetry 99 10/03/22 12:31 Temperature 36.7 C 10/03/22 12:31 Temperature Source Skin 10/03/22 12:31 Pulse 80 10/03/22 12:31 Respiratory Rate 16 10/03/22 12:31 Respiratory Effort Normal, Non-Labored 10/03/22 12:51 Blood Pressure 120/80 10/03/22 12:31 Pulse Oximetry 99 10/03/22 12:31 Oxygen Delivery Method Room Air 10/03/22 12:31 Oxygen Flow Rate 0 10/03/22 12:31 Pain Level 9 10/03/22 12:44
[2022-10-03 13:16] LABS: Abs Immature Grans 0.02 10^3/uL (0.0-0.06); Absolute Eosinophil Count 0.11 10^3/uL (0.0-0.7); Absolute Lymphocyte Count 1.63 10^3/uL (1.2-3.4); Absolute Neutrophil Count 5.78 10^3/uL (1.2-6.7); Basophils % 1.2; Eosinophils % 1.3; HCT 36.2 % (36.0-46.0); Immature Grans % 0.2; Lymphocytes % 19.8; MCH 27.6 pg (27.0-33.0); MCHC 33.1 % (32.0-36.0); MCV 83 fL (80-95); MPV 9.6 fL (8.0-11.0); Monocytes % 7.3; Neutrophils % 70.2; Platelet Count 403 10^3/uL (130-400); RBC 4.35 10^6/uL (3.93-5.22); RDW-SD 36.4 fL; WBC 8.24 10^3/uL (4.4-10.8)
[2022-10-03] MEDS: ACETAMINOPHEN 1,000 MG/100 ML BTL 400 MG IVPB (13:16)
[2022-10-03] MEDS: Normal Saline 1,000 ML 1000 ML IV (13:16)
[2022-10-03] MEDS: Ketorolac 15 MG/ML VIAL IVP (13:17)
[2022-10-03] MEDS: HYDROmorphone 2 MG/ML SYR 0.5 MG IVP (13:17)
[2022-10-03 13:41] LABS: ALT 17 U/L (14-59); AST 43 U/L (15-37); Alkaline Phosphatase 90 U/L (46-116); Anion Gap 0.7 mmol/L (3-11); BUN 8 mg/dL (7-18); Bilirubin, Total 0.7 mg/dL (0.2-1.0); CO2 27.3 mmol/L (21.0-32.0); CREATININE 0.6 mg/dL (0.55-1.02); Calcium 8.9 mg/dL (8.5-10.1); Chloride 105 mmol/L (98-107); Estimated GFR 107.93 (mL/min/1.73m2); Glucose 89 mg/dL (74-106); Potassium 4.2 mmol/L (3.5-5.1); Sodium 133 mmol/L (136-145)
== END 2022-10-03 15:34 | disposition home or self-care (01) ==
PROVIDERS: Emergency Provider Nurse Practitioner Family; PCP Nurse Practitioner Family
DX: R10.9 Unspecified abdominal pain (principal); N83.8 Other noninflammatory disorders of ovary, fallopian tube and broad ligament
CPT/HCPCS: 80053; 96365; 96375; 99284; 85025; J0131; J1170; J1885

== ENCOUNTER 2022-11-24 17:39 | Outpatient (CLI) | payer MEDICAID, SELFPAY ==
[2022-11-24 16:40] LABS: Abs Immature Grans 0.03 10^3/uL (0.0-0.06); Absolute Basophil Count 0.11 10^3/uL (0.0-0.2); Absolute Eosinophil Count 0.17 10^3/uL (0.0-0.7); Absolute Monocyte Count 0.41 10^3/uL (0.1-0.8); Absolute Neutrophil Count 4.61 10^3/uL (1.2-6.7); Basophils % 1.3; Eosinophils % 2.1; HCT 36.1 % (36.0-46.0); HGB 11.6 g/dL (11.2-15.7); Immature Grans % 0.4; Lymphocytes % 35.2; MCH 27.2 pg (27.0-33.0); MCHC 32.1 % (32.0-36.0); MCV 85 fL (80-95); MPV 9.1 fL (8.0-11.0); Platelet Count 367 10^3/uL (130-400); RBC 4.26 10^6/uL (3.93-5.22); RDW 13.5 % (11.7-14.6); RDW-SD 41.9 fL; WBC 8.23 10^3/uL (4.4-10.8)
[2022-11-24 17:14] LABS: ALT 36 U/L (14-59); AST 18 U/L (15-37); Albumin 3.5 g/dL (3.4-5.0); Alkaline Phosphatase 91 U/L (46-116); Anion Gap 8.6 mmol/L (3-11); BUN 10 mg/dL (7-18); Bilirubin, Total 0.2 mg/dL (0.2-1.0); CO2 27.4 mmol/L (21.0-32.0); CREATININE 0.9 mg/dL (0.55-1.02); Chloride 105 mmol/L (98-107); Estimated GFR 76.92 (mL/min/1.73m2); Glucose 101 mg/dL (74-106); Potassium 3.6 mmol/L (3.5-5.1); Sodium 141 mmol/L (136-145); Total Protein 6.8 g/dL (6.4-8.2)
[2022-11-26 10:49] LABS: CA 125 19 U/mL (<30)
== END 2022-11-24 17:40 | disposition home or self-care (01) ==
LOC: LBO 17:39
PROVIDERS: PCP Nurse Practitioner Family; Visit Provider Obstetrics & Gynecology Gynecologic Oncology
DX: C56.1 Malignant neoplasm of right ovary (principal)
CPT/HCPCS: 36415; 80053; 86304; 85025

== ENCOUNTER 2022-12-18 15:13 | Outpatient (CLI) | payer MEDICAID, SELFPAY ==
[2022-12-18 15:40] LABS: Abs Immature Grans 0.03 10^3/uL (0.0-0.06); Absolute Basophil Count 0.13 10^3/uL (0.0-0.2); Absolute Eosinophil Count 0.04 10^3/uL (0.0-0.7); Absolute Lymphocyte Count 2.62 10^3/uL (1.2-3.4); Absolute Monocyte Count 0.48 10^3/uL (0.1-0.8); Absolute Neutrophil Count 4.55 10^3/uL (1.2-6.7); Basophils % 1.7; Eosinophils % 0.5; HCT 37.9 % (36.0-46.0); HGB 12.5 g/dL (11.2-15.7); Immature Grans % 0.4; Lymphocytes % 33.4; MCH 27.8 pg (27.0-33.0); MCV 84 fL (80-95); MPV 9.2 fL (8.0-11.0); Monocytes % 6.1; Neutrophils % 57.9; Platelet Count 335 10^3/uL (130-400); RBC 4.49 10^6/uL (3.93-5.22); RDW 13.9 % (11.7-14.6); RDW-SD 42.5 fL; WBC 7.85 10^3/uL (4.4-10.8)
[2022-12-18 16:15] LABS: ALT 53 U/L (14-59); AST 30 U/L (15-37); Albumin 3.7 g/dL (3.4-5.0); Alkaline Phosphatase 98 U/L (46-116); Anion Gap 5.6 mmol/L (3-11); BUN 15 mg/dL (7-18); Bilirubin, Total 0.2 mg/dL (0.2-1.0); CO2 28.4 mmol/L (21.0-32.0); CREATININE 0.9 mg/dL (0.55-1.02); Calcium 9.2 mg/dL (8.5-10.1); Chloride 104 mmol/L (98-107); Estimated GFR 76.92 (mL/min/1.73m2); Glucose 88 mg/dL (74-106); Potassium 3.4 mmol/L (3.5-5.1); Sodium 138 mmol/L (136-145); Total Protein 7.2 g/dL (6.4-8.2)
[2022-12-21 12:12] LABS: CA 125 12 U/mL (<30)
== END 2022-12-18 15:14 | disposition home or self-care (01) ==
LOC: LBO 15:14
PROVIDERS: PCP Nurse Practitioner Family; Visit Provider Obstetrics & Gynecology Gynecologic Oncology
DX: C56.1 Malignant neoplasm of right ovary (principal)
CPT/HCPCS: 36415; 80053; 86304; 85025

== ENCOUNTER 2023-01-08 15:22 | Outpatient (CLI) | payer MEDICAID, SELFPAY ==
[2023-01-08 14:26] LABS: Abs Immature Grans 0.02 10^3/uL (0.0-0.06); Absolute Basophil Count 0.07 10^3/uL (0.0-0.2); Absolute Eosinophil Count 0.03 10^3/uL (0.0-0.7); Absolute Lymphocyte Count 2.22 10^3/uL (1.2-3.4); Absolute Monocyte Count 0.53 10^3/uL (0.1-0.8); Absolute Neutrophil Count 2.42 10^3/uL (1.2-6.7); Basophils % 1.3; Eosinophils % 0.6; HCT 35.8 % (36.0-46.0); HGB 11.9 g/dL (11.2-15.7); Immature Grans % 0.4; MCH 28.3 pg (27.0-33.0); MCHC 33.2 % (32.0-36.0); MCV 85 fL (80-95); MPV 8.4 fL (8.0-11.0); Neutrophils % 45.7; Platelet Count 388 10^3/uL (130-400); RDW 14.6 % (11.7-14.6); RDW-SD 44.7 fL; WBC 5.29 10^3/uL (4.4-10.8)
[2023-01-08 14:53] LABS: ALT 49 U/L (14-59); AST 21 U/L (15-37); Albumin 3.4 g/dL (3.4-5.0); Alkaline Phosphatase 96 U/L (46-116); Anion Gap 9.2 mmol/L (3-11); BUN 12 mg/dL (7-18); Bilirubin, Total 0.2 mg/dL (0.2-1.0); CO2 27.8 mmol/L (21.0-32.0); CREATININE 0.9 mg/dL (0.55-1.02); Calcium 8.7 mg/dL (8.5-10.1); Chloride 104 mmol/L (98-107); Estimated GFR 76.92 (mL/min/1.73m2); Glucose 101 mg/dL (74-106); Potassium 3.4 mmol/L (3.5-5.1); Sodium 141 mmol/L (136-145); Total Protein 6.8 g/dL (6.4-8.2)
[2023-01-11 16:47] LABS: CA 125 10 U/mL (<30)
== END 2023-01-08 15:23 | disposition home or self-care (01) ==
PROVIDERS: PCP Nurse Practitioner Family; Visit Provider Obstetrics & Gynecology Gynecologic Oncology
DX: C56.1 Malignant neoplasm of right ovary (principal)
CPT/HCPCS: 36415; 80053; 86304; 85025

== ENCOUNTER → 2023-03-15 04:14 | Outpatient (CLI) | payer MEDICAID, SELFPAY ==
--- NOTE | 2023-03-15 | DI.MAMMO_ITS ---
Exam(s) MAMMO SCREENING EXAM: MAMMO SCREENING CLINICAL HISTORY: SCREENING, Z12.31. TECHNIQUE: Bilateral full field digital CC and MLO mammographic images were obtained with 3D tomosyn thesis and utilizing computer aided detection (CAD). COMPARISON: Prior mammograms were reviewed. Prior ultrasound examinations 08/28/2020 was reviewed. FINDINGS: In the right breast the previously described well-defined slightly lobulated noncalcified nodule exhi bits minimal if any significant change and was apparently shown to be a cyst on prior ultrasound exam ination of August 2020. There are no new focal right breast findings. In the left breast there is a well-defined oval noncalcified nodule measuring approximately 9 x 6 mm located 8 cm in from the nipple on the CC view. This is unchanged from August 2020 and most likely roxanne ign. There are no new spiculated masses nor malignant appearing microcalcification groups. There is no significant architectural distortion nor skin thickening-retraction. IMPRESSION: Stable benign-appearing bilateral findings. No radiographic evidence of malignancy. BI-RADS Category 2 - Benign Findings Breast Density - Category B - Scattered areas of fibroglandular density Breast density Category C or D implies that the patient has dense breast tissue. Dense breast tissue can make it harder to find cancer on a mammogram. Dense breast tissue is also associated with an incr eased risk of breast cancer. This information about the result of the mammogram report was provided to the patient to raise their awareness. Use this report when you speak with the patient about their risks for breast cancer, which includes their family history. At that time, you may recommend additional screening tests (Ultrasoun d or MRI) as these tests may add significant information. A negative radiographic report should not delay biopsy if a dominant or clinically suspicious mass is present. Up to ten percent of cancers are not identified on mammography. A negative report may reinforce clinical impression. Adenosis and dense breasts may obscure an underlying neoplasm. False positive reports average 6 to 10%. Patient will receive a letter notifying them of these results.
== END ==
PROVIDERS: PCP Nurse Practitioner Family; Visit Provider Nurse Practitioner Family
DX: Z12.31 Encounter for screening mammogram for malignant neoplasm of breast (principal); R92.323 Mammographic fibroglandular density, bilateral breasts; R92.8 Other abnormal and inconclusive findings on diagnostic imaging of breast
CPT/HCPCS: 77063; 77067

== ENCOUNTER 2023-04-20 21:24 | Outpatient (REF) | payer MEDICAID, SELFPAY ==
[2023-04-20 21:02] LABS: Abs Immature Grans 0.01 10^3/uL (0.0-0.06); Absolute Basophil Count 0.07 10^3/uL (0.0-0.2); Absolute Eosinophil Count 0.11 10^3/uL (0.0-0.7); Absolute Lymphocyte Count 2.48 10^3/uL (1.2-3.4); Absolute Neutrophil Count 4.02 10^3/uL (1.2-6.7); Eosinophils % 1.5; HCT 37.6 % (36.0-46.0); HGB 12.7 g/dL (11.2-15.7); Immature Grans % 0.1; Lymphocytes % 34.5; MCH 29.5 pg (27.0-33.0); MCHC 33.8 % (32.0-36.0); MCV 87 fL (80-95); Neutrophils % 55.9; Platelet Count 299 10^3/uL (130-400); RDW 11.9 % (11.7-14.6); RDW-SD 38.5 fL; WBC 7.19 10^3/uL (4.4-10.8)
[2023-04-20 21:25] LABS: ALT 29 U/L (14-59); AST 25 U/L (15-37); Albumin 3.7 g/dL (3.4-5.0); Alkaline Phosphatase 85 U/L (46-116); Anion Gap 11.2 mmol/L (3-11); BUN 16 mg/dL (7-18); Bilirubin, Total 0.5 mg/dL (0.2-1.0); CO2 27.8 mmol/L (21.0-32.0); CREATININE 0.9 mg/dL (0.55-1.02); Calcium 9.2 mg/dL (8.5-10.1); Chloride 105 mmol/L (98-107); Estimated GFR 76.92 (mL/min/1.73m2); Glucose 98 mg/dL (74-106); Potassium 3.7 mmol/L (3.5-5.1); Sodium 144 mmol/L (136-145); TSH (W/Ref FT4) 1.58 uIU/mL (0.36-3.74); Total Protein 6.8 g/dL (6.4-8.2)
[2023-04-21 20:43] LABS: CA 125 10 U/mL (<30)
== END 2023-04-20 21:25 | disposition home or self-care (01) ==
LOC: NCHCN 21:24
PROVIDERS: PCP Nurse Practitioner Family; Visit Provider Nurse Practitioner Family
DX: R19.7 Diarrhea, unspecified (principal); C56.1 Malignant neoplasm of right ovary
CPT/HCPCS: 80053; 86304; 84443; 85025

== ENCOUNTER 2023-04-22 17:25 | Outpatient (REF) | payer MEDICAID, SELFPAY ==
[2023-04-23 10:44] LABS: Campylobacter PCR Negative (Negative); Salmonella PCR Negative (Negative); Shiga Toxin PCR Negative (Negative); Shigella/Enteroinvasive Ecoli Negative (Negative)
== END 2023-04-22 17:26 | disposition home or self-care (01) ==
LOC: NCHCN 17:25
PROVIDERS: PCP Nurse Practitioner Family; Referring Provider Nurse Practitioner Family; Visit Provider Nurse Practitioner Family
DX: R19.7 Diarrhea, unspecified (principal)
CPT/HCPCS: 87505; 87177

== ENCOUNTER → 2023-04-26 04:16 | Outpatient (CLI) | payer MEDICAID, SELFPAY ==
--- NOTE | 2023-04-26 | DI.US_ITS ---
Exam(s) US ABDOMEN EXAM: US ABDOMEN CLINICAL HISTORY: DIARRHEA, UNSPECIFIED, R19.7 TECHNIQUE: Ultrasound abdomen performed using standard protocol. COMPARISON: CT CT ABDOMEN PELVIS W from 10/01/2022 FINDINGS: LIVER: Normal size. Mildly increased echogenicity, consistent with mild hepatic steatosis.. No foca l liver lesions are seen. GALLBLADDER: No evidence of cholelithiasis. No evidence of wall thickening. No pericholecystic fluid identified. OLIVARES'S SIGN: Negative. BILIARY SYSTEM: No intrahepatic or extrahepatic biliary ductal dilation. KIDNEYS: Kidneys are symmetric in size. No evidence of renal calculi. No evidence of hydronephrosis. No renal mass or cyst identified. PANCREAS: Normal where visualized. Tail not seen. SPLEEN: Not enlarged. ABDOMINAL AORTA AND IVC: Visualized portions normal caliber. ASCITES: None seen. IMPRESSION: Mild hepatic steatosis. DATA REPOSITORY:
== END ==
PROVIDERS: PCP Nurse Practitioner Family; Visit Provider Nurse Practitioner Family
DX: K76.0 Fatty (change of) liver, not elsewhere classified (principal); R19.7 Diarrhea, unspecified
CPT/HCPCS: 76700

== ENCOUNTER 2023-09-06 12:04 | Outpatient (REF) | payer MEDICAID, SELFPAY ==
[2023-09-06 15:06] LABS: Calculated LDL 142 mg/dL (<100); Cholesterol 241 mg/dL (<200); HDL Cholesterol 74 mg/dL (40-60); Triglyceride 125 mg/dL (<150)
== END 2023-09-06 12:05 | disposition home or self-care (01) ==
LOC: NCHCN 12:04
PROVIDERS: PCP Nurse Practitioner Family; Visit Provider Nurse Practitioner Family
DX: E78.5 Hyperlipidemia, unspecified (principal)
CPT/HCPCS: 80061

== ENCOUNTER 2023-10-05 02:23 | Outpatient (CLI) | payer MEDICAID, SELFPAY ==
--- NOTE | 2023-10-05 | DI.CT_ITS ---
Exam(s) CT ABDOMEN PELVIS W EXAM: CT ABDOMEN PELVIS W CLINICAL HISTORY: PRIMARY OVARIAN CA,C56.9. TECHNIQUE: Imaging Protocol: Axial computed tomography images with coronal and sagittal reformatted images were created and reviewed CONTRAST MATERIAL: Intravenous: Omnipaque-350 100cc Oral: Yes. Oral contrast was also administered for bowel opacification. COMPARISON: CT CT ABDOMEN PELVIS W from 10/01/2022 FINDINGS: VISUALIZED LUNG BASES: There is a small 5 mm noncalcified nodule in the left lung base-posterior basa l segment of the left lower lobe just above the hemidiaphragm. This was not evident on prior CT scan of 1 year ago (September 2022). No nodule seen in the right lung base. No pleural effusions. ABDOMEN: There is no ascites. No new mesenteric nor omental masses. No omental caking evident. LIVER: 2 tiny cysts in the liver are unchanged. There are no new significant hepatic lesions. No di lated intrahepatic ducts. No dilated intrahepatic ducts. GALLBLADDER/BILIARY: No obvious gallbladder pathology. CBD is not dilated. PANCREAS: No evidence of pancreatic mass nor dilatation of the pancreatic duct. SPLEEN: Spleen is not enlarged. No obvious intrasplenic lesions. Splenic and portal veins are paten t. ADRENALS: There are no significant adrenal masses. KIDNEYS:No cysts evident. No solid renal masses. No calculi nor hydronephrosis.. ABDOMINAL AORTA: Abdominal aorta is not enlarged. LYMPH NODES:There is no retroperitoneal nor paraaortic adenopathy. ABDOMINAL WALL: No evidence of significant anterior abdominal wall nor inguinal hernia. GI: There is no evidence of bowel obstruction, free air, nor abscess. PELVIS: GI: No evidence of appendicitis.Redundant but otherwise unremarkable appearing sigmoid. No significa nt diverticular disease in the sigmoid evident LYMPH NODES: There is no intrapelvic nor inguinal adenopathy. No adenopathy along the iliac chains. No obturator adenopathy. REPRODUCTIVE: Previously present large ovarian masses been removed along the right ovary and the left ovary is also surgically absent. The uterus is in place and exhibits upper normal size. There may be slight thickening of the endometrium. There is no free fluid in the pelvis. URINARY BLADDER: No calculi nor obvious masses evident OSSEOUS: No fractures and no significant osseous lesions. Chronic disc space narrowing at L4-5. No listhesis. IMPRESSION: 1. Compared to the prior CT scan of 10/01/2022 there has been removal of the large right ovarian mass and smaller left ovarian mass. Ovaries are not identified on the present study although the uterus appears to be in place.. There may be slight thickening of the endometrium here. Recommend follow-u p ultrasound. 2. There are no abnormal adnexal masses nor free fluid in the pelvis and no intrapelvic adenopathy no r adenopathy elsewhere in the abdomen. 3. No evidence of ascites nor mesenteric/omental cake 4. Incidentally noted is a 4-5 mm noncalcified nodule in the extreme left lung base posterior basal s egment left lower lobe which was not evident on the CT scan of September 2022. Recommend follow-up ches t CT scan to determine if there are additional new lung nodules in this patient with a history of ova carey malignancy. RADIATION DOSE DELIVERED: 425.93mGy.cm Total DLP DATA REPOSITORY: All CT scans at this facility are submitted to the National Radiology Data Registry (NRDR) Dose Index Registry (DIR) with the [employer] (ACR). RADIATION OPTIMIZATION: All CT scans at this facility use at least one of these dose optimization te chniques: automated exposure control; mA and/or kV adjustment per patient size (includes targeted exa ms where dose is matched to clinical indication); or iterative reconstruction.
[2023-10-05] MEDS: Barium Sulfate 2% W/V-Berry Smoothie 450 ML BTL PO ×2 (08:22→08:23)
[2023-10-05] MEDS: Omnipaque 350 MG/ML 500 ML BTL-Imaging package IJ (10:22)
[2023-10-05] MEDS: Normal Saline - Diluent 50 ML VIAL IJ (10:25)
== END 2023-10-05 02:43 ==
LOC: DI 02:23
PROVIDERS: PCP Nurse Practitioner Family; Visit Provider Nurse Practitioner Family
DX: C56.1 Malignant neoplasm of right ovary (principal)
CPT/HCPCS: 74177

== ENCOUNTER 2023-11-01 02:32 | Outpatient (CLI) | payer MEDICAID, SELFPAY ==
--- NOTE | 2023-11-01 | DI.CT_ITS ---
Exam(s) CT CHEST W EXAM: CT CHEST W CLINICAL HISTORY: LT LUNG NODULE, NEW,R91.8,ABNL FINDINGS ON CT 10/05/23 TECHNIQUE: Imaging Protocol: Axial computed tomography images with coronal and sagittal reformatted images were created and reviewed CONTRAST MATERIAL: Intravenous: Omnipaque 350Contrast volume:70 mL. COMPARISON: CT CT ABDOMEN PELVIS W from 09/18/[address] ABDOMEN PELVIS W from 10/01/[address] ABDOMEN PELVIS W from 10/05/2023 FINDINGS: Tracheobronchial tree: Patent where visualized. No evidence of bronchiectasis. Pulmonary parenchyma: The small 5 mm noncalcified nodule in the left lung is again seen. It can be v isualized on the CT scan of the abdomen from 09/18/2022. It is unchanged. There is a 3 mm nodule in the periphery of the right middle lobe (series 2, image 167). There is a 3 mm nodule in the left upp er lobe (series 2, image 123). No focal consolidating infiltrates are present. Mediastinum and Nabila: No dominant adenopathy or fluid collection. The esophagus is unremarkable. Thyroid gland: Unremarkable. Pleura: No effusion or pneumothorax. Heart: The heart is not dilated. No coronary artery calcifications are seen. No pericardial effusion. Aorta: Thoracic aorta non-dilated. Atherosclerotic calcification is present. Pulmonary arteries: Due to the timing of the bolus, the pulmonary arteries are not adequately opacifi ed for evaluation of pulmonary emboli. Upper abdomen: Unremarkable. Lymph nodes: Within normal limits. Bones: Within normal limits for the patient's age. No aggressive osseous lesions are present. Tubes, Catheters, and Lines: The patient has a right-sided indwelling central venous catheter. The t ip of the catheter lies at the junction of the superior vena cava and right atrium. Soft tissues: Unremarkable. IMPRESSION: 1. Three noncalcified pulmonary nodules are identified. 2. No acute pulmonary process. RADIATION DOSE DELIVERED: 189.33mGy.cm Total DLP DATA REPOSITORY: All CT scans at this facility are submitted to the National Radiology Data Registry (NRDR) Dose Index Registry (DIR) with the [employer] (ACR). RADIATION OPTIMIZATION: All CT scans at this facility use at least one of these dose optimization te chniques: automated exposure control; mA and/or kV adjustment per patient size (includes targeted exa ms where dose is matched to clinical indication); or iterative reconstruction.
--- NOTE | 2023-11-01 | DI.US_ITS ---
Exam(s) US PELVIS TRANSVAGINAL EXAM: US PELVIS TRANSVAGINAL CLINICAL HISTORY: THICKENED ENDOMETRIUM,R93.889,ABNL FINDINGS. TECHNIQUE: Transabdominal and transvaginal pelvic ultrasound was performed using standard protocol. COMPARISON: US US PELVIS TRANSVAGINAL from 09/18/[address] ABDOMEN PELVIS W from 10/05/2023 FINDINGS: UTERUS: Position: Retroverted. Size: 5.8 long by 3.1 AP by 4.8 transverse cm Endometrium: 0.6 cm. The endometrial stripe is heterogeneous in appearance with several cystic areas internally. Myometrium: Unremarkable. Cervix: Unremarkable. OVARIES: Status post bilateral oophorectomy. No suspicious adnexal masses are seen sonographically. CUL-DE-SAC: Free fluid: None. Other: None. IMPRESSION: 1. 0.6 cm heterogeneous thickened endometrial stripe in this postmenopausal patient. Biopsy is recom mended. Previous endometrial measurement was 1.4 cm on 09/18/2022. Biopsy was recommended at that ti me. Please correlate with the patient's medical history. 2. Status post bilateral oophorectomy. DATA REPOSITORY:
[2023-11-01] MEDS: Omnipaque 350 MG/ML 100 ML BTL IJ (13:29)
[2023-11-01] MEDS: Normal Saline - Diluent 50 ML VIAL IJ (13:30)
== END 2023-11-01 02:52 ==
LOC: DI 02:32
PROVIDERS: PCP Nurse Practitioner Family; Visit Provider Nurse Practitioner Family
DX: R91.8 Other nonspecific abnormal finding of lung field (principal); R93.89 Abnormal findings on diagnostic imaging of other specified body structures
CPT/HCPCS: 71260; 76830; 76856; J3490

== ENCOUNTER 2023-11-01 02:45 | Outpatient (RCR) | payer MEDICAID, SELFPAY ==
[2023-11-01] MEDS: Normal Saline Flush 10 ML SYR IVP (13:21)
== END 2023-11-08 23:59 | disposition home or self-care (01) ==
LOC: INF 02:45
PROVIDERS: PCP Nurse Practitioner Family; Visit Provider Nurse Practitioner Family
DX: Z45.2 Encounter for adjustment and management of vascular access device (principal)
CPT/HCPCS: 96523

== ENCOUNTER 2024-03-14 00:48 | Outpatient (CLI) | payer MEDICAID, SELFPAY ==
[2024-03-15 21:47] LABS: CA 125 7 U/mL (<30)
== END 2024-03-14 00:49 | disposition home or self-care (01) ==
LOC: LBO 00:48
PROVIDERS: PCP Nurse Practitioner Family; Visit Provider Obstetrics & Gynecology Gynecologic Oncology
DX: C56.1 Malignant neoplasm of right ovary (principal)
CPT/HCPCS: 36415; 86304

== ENCOUNTER 2024-06-05 13:17 | Outpatient (REF) | payer SELFPAY ==
[2024-06-05 14:39] LABS: Abs Immature Grans 0.01 10^3/uL (0.0-0.06); Absolute Basophil Count 0.09 10^3/uL (0.0-0.2); Absolute Eosinophil Count 0.12 10^3/uL (0.0-0.7); Absolute Lymphocyte Count 1.85 10^3/uL (1.2-3.4); Absolute Monocyte Count 0.33 10^3/uL (0.1-0.8); Absolute Neutrophil Count 3.36 10^3/uL (1.2-6.7); Basophils % 1.6 %; Eosinophils % 2.1 %; HCT 41.2 % (36.0-46.0); HGB 13.7 g/dL (11.2-15.7); Immature Grans % 0.2 %; Lymphocytes % 32.1 %; MCH 28.9 pg (27.0-33.0); MCHC 33.3 % (32.0-36.0); MCV 87 fL (80-95); MPV 9.9 fL (8.0-11.0); Monocytes % 5.7 %; Neutrophils % 58.3 %; Platelet Count 322 10^3/uL (130-400); RBC 4.74 10^6/uL (3.93-5.22); RDW 12.2 % (11.7-14.6); RDW-SD 38.8 fL; WBC 5.76 10^3/uL (4.4-10.8)
[2024-06-05 14:56] LABS: ALT 24 U/L (14-59); AST 21 U/L (15-37); Albumin 3.7 g/dL (3.4-5.0); Alkaline Phosphatase 77 U/L (46-116); Anion Gap 10.2 mmol/L (3-11); BUN 12 mg/dL (7-18); Bilirubin, Total 0.7 mg/dL (0.2-1.0); CO2 26.8 mmol/L (21.0-32.0); CREATININE 0.9 mg/dL (0.55-1.02); Calcium 9.1 mg/dL (8.5-10.1); Chloride 108 mmol/L (98-107); Estimated GFR 76.44 (mL/min/1.73m2); Glucose 94 mg/dL (74-106); Potassium 3.9 mmol/L (3.5-5.1); Sodium 145 mmol/L (136-145); Total Protein 6.6 g/dL (6.4-8.2)
[2024-06-05 15:14] LABS: Hemoglobin A1C 5.4 % (<5.7)
== END 2024-06-05 13:18 | disposition home or self-care (01) ==
LOC: NCHCN 13:17
PROVIDERS: PCP Nurse Practitioner Family; Visit Provider Nurse Practitioner Family
DX: K76.0 Fatty (change of) liver, not elsewhere classified (principal)
CPT/HCPCS: 80053; 83036; 85025

== ENCOUNTER 2024-06-13 08:48 | Outpatient (RCR) | payer BC, SELFPAY ==
[2024-06-13] MEDS: Normal Saline Flush 10 ML SYR IVP (11:49)
== END 2024-07-08 23:59 | disposition home or self-care (01) ==
LOC: INF 08:48
PROVIDERS: PCP Nurse Practitioner Family; Visit Provider Nurse Practitioner Family
DX: Z45.2 Encounter for adjustment and management of vascular access device (principal)
CPT/HCPCS: 36591

== ENCOUNTER 2024-06-23 14:14 | Outpatient (REF) | payer BC, SELFPAY | END 2024-06-23 14:15 | disposition home or self-care (01) | LOC: NCHCN 14:14 | PROVIDERS: PCP Nurse Practitioner Family; Visit Provider Nurse Practitioner Family | DX: N30.90 Cystitis, unspecified without hematuria (principal) | CPT/HCPCS: 87086 ==

== ENCOUNTER 2024-09-11 01:22 | Outpatient (CLI) | payer BC, SELFPAY ==
--- NOTE | 2024-09-11 | DI.RAD_ITS ---
Exam(s) XR KNEE RT 3V AP,LAT,RASHARD EXAM: XR KNEE RT 3V AP,LAT,RASHARD CLINICAL HISTORY: PAIN RT KNEE M25.561. TECHNIQUE: 2D digital imaging was performed of the right knee. Three views obtained. AP, lateral and PA tunnel views were obtained. COMPARISON: No exams were available for comparison FINDINGS: BONES: No acute fracture is present. No bony destructive lesion is seen. JOINTS: There is mild narrowing of the medial femoral tibial joint. No joint effusion is seen. SOFT TISSUE: Normal. IMPRESSION: Mild narrowing in the medial femoral tibial joint. DATA REPOSITORY: RADIATION DOSE DELIVERED:
--- NOTE | 2024-09-11 | DI.RAD_ITS ---
Exam(s) XR HIP RT COMPLETE AP PELVIS EXAM: XR HIP RT COMPLETE AP PELVIS CLINICAL HISTORY: PAIN RT HIP M25.551. TECHNIQUE: 2D digital imaging was performed of the right hip. Three images were obtained. AP pelvis and lateral right hip views were obtained. COMPARISON: No exams were available for comparison FINDINGS: BONES: No acute fracture is present. No bony destructive lesion is seen. There is a transitional vertebra at the lumbosacral junction. JOINTS: No dislocation present. There is mild spurring of the right acetabulum. The right hip is otherwise well maintained. The sacroiliac joints and symphysis pubis are unremarkable. SOFT TISSUE: Normal. IMPRESSION: Mild degenerative changes of the right hip. DATA REPOSITORY: RADIATION DOSE DELIVERED:
--- NOTE | 2024-09-11 | DI.MAMMO_ITS ---
Exam(s) MAMMO SCREENING EXAM: MAMMO SCREENING CLINICAL HISTORY: SCREENING MAMMO Z12.31 TECHNIQUE: Bilateral full field digital CC and MLO mammographic images were obtained with 3D tomosynthesis and utilizing computer aided detection (CAD). COMPARISON: Comparison is made with prior examinations. FINDINGS: Masses/Architectural Distortion: No suspicious masses or areas of architectural distortion are present. There are stable bilateral breast nodules. Microcalcifications: No suspicious pleomorphic-type are seen. Skin Thickening/Nipple Retraction: None. IMPRESSION: 1. No significant interval change with no specific features of malignancy noted. 2. Unless there is more urgent need, screening mammography is recommended, as per [place] [employer] guidelines. BI-RADS Category 2 - Benign Findings Breast Density - Category B - There are scattered areas of fibroglandular density. Breast density Category C or D implies that the patient has dense breast tissue. Dense breast tissue can make it harder to find cancer on a mammogram. Dense breast tissue is also associated with an increased risk of breast cancer. This information about the result of the mammogram report was provided to the patient to raise their awareness. Use this report when you speak with the patient about their risks for breast cancer, which includes their family history. At that time, you may recommend additional screening tests (Ultrasound or MRI) as these tests may add significant information. A negative radiographic report should not delay biopsy if a dominant or clinically suspicious mass is present. Up to ten percent of cancers are not identified on mammography. A negative report may reinforce clinical impression. Adenosis and dense breasts may obscure an underlying neoplasm. False positive reports average 6 to 10%. Patient will receive a letter notifying them of these results.
== END 2024-09-11 01:42 ==
LOC: DI 01:22
PROVIDERS: PCP Nurse Practitioner Family; Visit Provider Nurse Practitioner Family
DX: Z12.31 Encounter for screening mammogram for malignant neoplasm of breast (principal); M25.561 Pain in right knee; M16.11 Unilateral primary osteoarthritis, right hip
CPT/HCPCS: 73562; 77063; 77067; 73502